=== PATIENT | female | born 2000 | race Caucasian/White ===

== ENCOUNTER 2023-05-20 12:13 | Emergency (ER) | payer OTHER ==
[2023-05-20 12:27] VITALS: BP 95/64; PULSE 58; RESP 16; TEMP 98; BMI 18.8
[2023-05-20] MEDS: SODIUM CHLORIDE 1,000 ML IV STA (13:17)
[2023-05-20 13:36] LABS: HCG,QUALITATIVE URINE Negative
[2023-05-20 13:42] LABS: BASO % 0.3 % (0-2.0); HEMATOCRIT 40.1 % (32.4-45.2); HEMOGLOBIN 13.4 GM/dL (10.7-15.3); LYMPH % 18.8 % (8-40); MCH 30.3 pg (25.7-33.7); MCHC 33.5 g/dl (32.0-36.0); MEAN CELL VOLUME 90.4 fl (80-96); MEAN PLT VOLUME 7.5 fl (7.5-11.1); MONO % 5.2 % (3.8-10.2); NEUT % 74.7 % (42.8-82.8); PLATELET COUNT 304 10^3/uL (134-434); RBC 4.43 M/mm3 (3.60-5.2); RDW 13.3 % (11.6-15.6); WHITE BLOOD COUNT 8.1 K/mm3 (4.0-10.0)
[2023-05-20 13:47] LABS: URINE APPEARANCE CLOUDY; URINE COLOR RED
[2023-05-20 13:50] LABS: PH,URINE 6.5 (5.0-8.0); URINE BILIRUBIN NEGATIVE (NEGATIVE); URINE GLUCOSE (UA) NEGATIVE (NEGATIVE); URINE KETONE 15 mg/dl (NEGATIVE); URINE LEUK ESTERASE TRACE (NEGATIVE); URINE NITRITE NEGATIVE (NEGATIVE); URINE PROTEIN 1+ (NEGATIVE); URINE RBC TMTC /uL (0-23.9)
[2023-05-20 13:51] LABS: URINE BACTERIA NEGATIVE /uL (0-1359)
[2023-05-20 14:08] LABS: ALBUMIN 3.9 g/dl (3.4-5.0); BLOOD UREA NITROGEN 8.5 mg/dL (7-18); CALCIUM 9.1 mg/dL (8.5-10.1)
[2023-05-20 14:11] LABS: CREATININE 0.7 mg/dL (0.55-1.3)
[2023-05-20 14:13] LABS: BILIRUBIN,TOTAL 0.4 mg/dL (0.2-1); TOT PROT 7.4 g/dl (6.4-8.2)
== END 2023-05-20 14:48 | disposition home or self-care (01) ==
LOC: JER 12:13
PROC: 3E0337Z Introduction of Electrolytic and Water Balance Substance into Peripheral Vein, Percutaneous Approach (ICD-10-PCS; principal; 2023-05-20)
DX: R42 Dizziness and giddiness (principal); R55 Syncope and collapse; Z20.822 Contact with and (suspected) exposure to COVID-19
CPT/HCPCS: 0241U-QW; 36415; 80053; 81003; 84703; 85025; 87086; 93005; 93010; 99284-25

== ENCOUNTER 2024-05-01 12:29 | Emergency (ER) | payer OTHER ==
[2024-05-01 12:41] VITALS: TEMP 98.1; BMI 19.5
[2024-05-01 15:48] VITALS: BP 120/70; PULSE 72; RESP 15
[2024-05-01 15:53] LABS: HIV INTERPRETATION NEGATIVE (NEGATIVE)
== END 2024-05-01 15:48 | disposition home or self-care (01) ==
LOC: JER 12:29
DX: R07.89 Other chest pain (principal)
CPT/HCPCS: 36415; 71046-TC-FY; 84484; 86803; 87389; 93005; 93010; 99285-25